=== PATIENT | female | born 1970 | race Caucasian/White ===

== ENCOUNTER → 2017-01-09 | Outpatient (CLI) | payer MEDICAID | LOC: FCPNEURO 23:13 | PROVIDERS: ATTEND Physician Assistant Medical | DX: G47.11 Idiopathic hypersomnia with long sleep time (principal) ==

== ENCOUNTER → 2018-05-18 | Outpatient (CLI) | payer MEDICAID | LOC: BRMIMAGING 10:20 | PROVIDERS: ATTEND Internal Medicine | DX: M79.7 Fibromyalgia (principal); M76.892 Other specified enthesopathies of left lower limb, excluding foot; M53.87 Other specified dorsopathies, lumbosacral region | CPT/HCPCS: 72114-PO; 73130-PO; 73562-PO ==